=== PATIENT | male | born 1995 | race Caucasian/White ===

== ENCOUNTER 2019-01-08 02:35 | Emergency (ER) | payer MEDICAID ==
[~2019-01-08] VITALS: Ht 180.3 cm; Wt 84.5 kg
[2019-01-08 02:46] VITALS: Ht 180.3 cm; Wt 84.5 kg
[2019-01-08] MEDS ORDERED: LEXAPRO10 MG PO ×2 (02:47→03:25)
[2019-01-08] MEDS ORDERED: KLONOPIN0.5 MG PO (02:48)
[2019-01-08 03:35] VITALS: BP 132/78
--- NOTE | 2019-01-08 04:12 | NUR ---
DR. IRENE NOTIFIED AND REVIEWED PT'S BEHAVIOR AND ASSESSMENT RESULTS. PT IS A LOW RISK PER DR. IRENE. DR. IRENE STATED TO GIVE RESOURCES TO PT AT TIME OF DISCHARGE. NO FURTHER ORDERS AT THIS TIME. RESOURCES REVIEWED WITH PT AND HE VERBALIZED UNDERSTANDING.
== END 2019-01-08 03:36 | disposition home or self-care (01) ==
LOC: D.ER 02:35
DX: F41.9 Anxiety disorder, unspecified (principal)

== ENCOUNTER 2019-06-17 15:46 | Emergency (ER) | payer MEDICAID ==
[~2019-06-17] VITALS: Ht 180.3 cm; Wt 89.5 kg
[~2019-06-17 15:46] MED LIST: KLONOPIN0.5 MG PO; LEXAPRO10 MG PO
[2019-06-17 16:01] VITALS: Ht 180.3 cm; Wt 89.5 kg
[2019-06-17 16:59] LABS: BASOPHILS 0.3 % (0-2); EOSINOPHILS 2.1 % (0-7); HEMATOCRIT 43.6 % (42.0-54.0); HEMOGLOBIN 14.9 g/dL (13.5-17.5); IMMATURE GRANULOCYTES 0.1 % (0-5); LYMPHOCYTES 18.2 % (15-50); MCH 33.2 pg (26.0-34.0); MCHC 34.2 g/dL (31.0-37.0); MCV 97.1 fL (80.0-100.0); MEAN PLATELET VOLUME 10.7 fL (7.4-10.4); MONOCYTES 8.2 % (2-11); NEUTROPHILS 71.1 % (40-80); PLATELET COUNT 166 10x3/uL (130-400); RBC 4.49 10x6/uL (4.20-6.10); RDW 12.6 % (11.5-14.5); WBC 7.2 10x3/uL (4.8-10.8)
[2019-06-17 17:17] LABS: CALC OSMOLALITY 274 mosm/kg (275-300); CALCIUM 9.1 mg/dL (8.5-10.1); CARBON DIOXIDE 29.8 mmol/L (21.0-32.0); CHLORIDE - SERUM 102 mmol/L (98-107); CREATININE - SERUM 0.9 mg/dL (0.6-1.3); GLUCOSE 84 mg/dL (74-106); SODIUM 138 mmol/L (136-145); UREA NITROGEN 13 mg/dL (7-18); eGFR NON AFRICAN AMERICAN > 90 mL/min (90-120)
[2019-06-17 17:25] LABS: ALBUMIN 4.1 g/dL (3.4-5.0); ALKALINE PHOSPHATASE 69 U/L (30-120); ALT (SGPT) 27 U/L (10-68); BILIRUBIN - TOTAL 0.57 mg/dL (0.2-1.3); PROTEIN - SERUM 6.8 g/dL (6.4-8.2)
[2019-06-17] MEDS ORDERED: TAMIFLU75 MG PO (17:57)
[2019-06-17 18:19] VITALS: BP 131/82
== END 2019-06-17 18:20 | disposition home or self-care (01) ==
LOC: D.ER 15:46
PROVIDERS: Emergency Medicine
DX: J11.1 Influenza due to unidentified influenza virus with other respiratory manifestations (principal); Z72.0 Tobacco use; R19.7 Diarrhea, unspecified

== ENCOUNTER 2020-09-27 22:00 | Emergency (ER) | payer BC ==
[~2020-09-27] VITALS: Ht 180.3 cm; Wt 102.1 kg
[~2020-09-27 22:00] MED LIST changes: +TAMIFLU75 MG PO
[2020-09-27] MEDS ORDERED: CELEXA10 MG PO (22:07)
[2020-09-27] MEDS ORDERED: BUSPAR10 MG PO (22:07)
[2020-09-27 22:08] VITALS: BP 143/63; Ht 180.3 cm; Wt 102.1 kg
== END 2020-09-27 23:50 | disposition left against medical advice (07) ==
LOC: D.ER 22:00
DX: S49.91XA Unspecified injury of right shoulder and upper arm, initial encounter (principal); X58.XXXA Exposure to other specified factors, initial encounter; Z53.21 Procedure and treatment not carried out due to patient leaving prior to being seen by health care provider